=== PATIENT | female | born 1975 | race Caucasian/White ===

== ENCOUNTER 2016-06-04 10:43 | Emergency (ER) | payer MEDICAID ==
[~2016-06-04] VITALS: Ht 167.6 cm; Wt 134.7 kg
[~2016-06-04 10:43] MED LIST: BUSP10TA PO; CLIN300C93 PO; FLUO40CA9 PO; [UNRECOGNIZED DRUG - OTHER]
[2016-06-04 10:44] VITALS: BP 126/81
[2016-06-04] MEDS ORDERED: HYDROcodone/APAP 5/325 TABLET ONE (11:15)
[2016-06-04] MEDS ORDERED: ALBU8.5H3 INH (11:21)
[2016-06-04] MEDS ORDERED: HYDROcodone/APAP 5/325 TABLET PO ONE (11:30)
== END 2016-06-04 12:57 | disposition home or self-care (01) ==
LOC: ED 11:26
DX: M77.32 Calcaneal spur, left foot (principal); J45.909 Unspecified asthma, uncomplicated; M19.90 Unspecified osteoarthritis, unspecified site
CPT/HCPCS: 99284

== ENCOUNTER 2016-07-02 16:16 | Emergency (ER) | payer MEDICAID ==
[~2016-07-02] VITALS: Ht 167.6 cm; Wt 134.1 kg
[~2016-07-02 16:16] MED LIST changes: +ALBU8.5H3 INH
[2016-07-02 16:22] VITALS: BP 153/82
== END 2016-07-02 17:13 | disposition home or self-care (01) ==
LOC: ED 17:07
DX: S51.851A Open bite of right forearm, initial encounter (principal); J45.909 Unspecified asthma, uncomplicated; M19.90 Unspecified osteoarthritis, unspecified site; W50.3XXA Accidental bite by another person, initial encounter; Y93.89 Activity, other specified; Y92.89 Other specified places as the place of occurrence of the external cause; Y99.8 Other external cause status
CPT/HCPCS: 99284

== ENCOUNTER 2017-06-14 11:04 | Emergency (ER) | payer MEDICAID, OTHER ==
[~2017-06-14] VITALS: Ht 165.1 cm; Wt 126.4 kg
[~2017-06-14 11:04] MED LIST changes: -ALBU8.5H3 INH; +ALBU8.5H8 INH; +CLIN300C8 PO; -CLIN300C93 PO
[2017-06-14] MEDS ORDERED: KETOROLAC 30 MG/1 ML ONE (11:40)
[2017-06-14] MEDS ORDERED: KETOROLAC 30 MG/1 ML IM ONE (12:00)
[2017-06-14 12:22] VITALS: BP 124/87
== END 2017-06-14 12:24 | disposition home or self-care (01) ==
LOC: ED 12:09
DX: M75.91 Shoulder lesion, unspecified, right shoulder (principal); F32.9 Major depressive disorder, single episode, unspecified
CPT/HCPCS: 73030; 73080; 96372; 99284; J1885

== ENCOUNTER 2017-09-18 14:40 | Emergency (ER) | payer SELFPAY ==
[~2017-09-18] VITALS: Ht 165.1 cm; Wt 124.0 kg
[2017-09-18 15:02] VITALS: BP 146/107
== END 2017-09-18 15:47 | disposition home or self-care (01) ==
LOC: ED 15:41
DX: K08.89 Other specified disorders of teeth and supporting structures (principal)
CPT/HCPCS: 99283

== ENCOUNTER 2019-01-06 13:12 | Emergency (ER) | payer MEDICAID ==
[~2019-01-06] VITALS: Ht 165.1 cm; Wt 131.9 kg
[2019-01-06 13:30] VITALS: BP 146/86
[2019-01-06] MEDS ORDERED: NALO4SPR INH (13:45)
[2019-01-06] MEDS ORDERED: GABA300C10 PO (13:45)
[2019-01-06] MEDS ORDERED: IRON (13:45)
[2019-01-06] MEDS ORDERED: AMIT25TA PO (13:45)
[2019-01-06] MEDS ORDERED: VIT D PO (13:45)
[2019-01-06] MEDS ORDERED: OXYC-307 PO (13:45)
[2019-01-06] MEDS ORDERED: HYDR-826 PO (13:45)
[2019-01-06] MEDS ORDERED: ATOR-2 PO (13:45)
[2019-01-06] MEDS ORDERED: LORA-247 PO (13:45)
[2019-01-06] MEDS ORDERED: CYCL-259 PO (13:45)
[2019-01-06] MEDS ORDERED: DOCU100C33 PO (13:45)
[2019-01-06] MEDS ORDERED: OMEP20TA62 PO (13:45)
== END 2019-01-06 15:03 | disposition home or self-care (01) ==
LOC: ED 14:33
DX: S86.111A Strain of other muscle(s) and tendon(s) of posterior muscle group at lower leg level, right leg, initial encounter (principal); X58.XXXA Exposure to other specified factors, initial encounter; Y93.89 Activity, other specified; Y92.89 Other specified places as the place of occurrence of the external cause; Y99.8 Other external cause status
CPT/HCPCS: 99284

== ENCOUNTER 2019-10-22 15:18 | Emergency (ER) | payer MEDICAID ==
[~2019-10-22] VITALS: Ht 167.6 cm; Wt 105.0 kg
[~2019-10-22 15:18] MED LIST changes: +AMIT25TA PO; +ATOR-2 PO; +CYCL-259 PO; +DOCU100C33 PO; +GABA300C10 PO; +HYDR-826 PO; +IRON; +LORA-247 PO; +NALO4SPR INH; +OMEP20TA62 PO; +OXYC-307 PO; +VIT D PO
--- NOTE | 2019-10-22 15:36 | NUR ---
PT BIB [facility], PT WITH MULTIPLE COMPLAINTS, MAIN COMPLAINT PT WITH RED TONGUE AND SORE THROAT, PT DENIES FEVERS OR COUGH. PT ALSO STATES SHE BEGAN TAKING ABX YESTERDAY FOR SUSPICION OF HAVING UTI. SHE ALSO STATES SHE HAS HAD OVERALL "FEELING ICKY" FOR THE PAST WEEK. PT TO BP, CONT PULSE OX. AWAITING ERPROVIDER EVAL
[2019-10-22] MEDS ORDERED: DEXAMETHASONE 4 MG TABLET ONE (15:56)
[2019-10-22] MEDS ORDERED: MECLIZINE CHEWABLE 25 MG TAB ONE (15:56)
[2019-10-22] MEDS ORDERED: MECLIZINE CHEWABLE 25 MG TAB PO ONE (16:00)
[2019-10-22] MEDS ORDERED: DEXAMETHASONE 4 MG TABLET PO ONE (16:00)
--- NOTE | 2019-10-22 16:01 | NUR ---
PT MEDICATED PER MAR, VSS, NAD NOTED AT THIS TIME
[2019-10-22 16:05] LABS: BASOPHILS # (AUTO) 0.04 x10^3/uL (0-0.1); BASOPHILS % (AUTO) 1 % (0-1); EOSINOPHILS # (AUTO) 0.14 x10^3/uL (0-0.4); EOSINOPHILS % (AUTO) 2 % (1-7); LYMPHOCYTES # (AUTO) 2.22 x10^3/uL (1-3.4); LYMPHOCYTES % (AUTO) 32 % (22-44); MD NO; MEAN CORPUSCULAR HEMOGLOBIN 29.7 pg (27.0-34.8); MEAN CORPUSCULAR HGB CONC 33.9 g/dL (32.4-35.8); MEAN CORPUSCULAR VOLUME 87.5 fL (80-100); MEAN PLATELET VOLUME 8.8 fL (7.4-10.4); MONOCYTES # (AUTO) 0.51 x10^3/uL (0.2-0.8); MONOCYTES % (AUTO) 7 % (2-9); NEUTROPHILS # (AUTO) 3.97 x10^3/uL (1.8-6.8); NEUTROPHILS % (AUTO) 58 % (42-75); PLATELET COUNT 225 x10^3/uL (130-400); RED CELL DISTRIBUTION WIDTH 12.4 % (9.6-15.2)
[2019-10-22 16:13] LABS: ALBUMIN 3.6 g/dL (3.4-5.0); ANION GAP 6 mmol/L (5-15); CALCIUM 8.9 mg/dL (8.5-10.1); CHLORIDE 109 mmol/L (98-107)
[2019-10-22 16:19] LABS: CREATININE 0.98 mg/dL (0.55-1.02)
--- NOTE | 2019-10-22 16:52 | NUR ---
PT STATES SHE IS NO LONGER DIZZY, ABLE TO AMBULATE STEADILY TO BR.
[2019-10-22 17:35] LABS: MICROSCOPIC AUTO
--- NOTE | 2019-10-22 18:48 | NUR ---
Bedside report from Catalina CLIFTON, pt resting on JEOVANNY mares. JOSHUATM. pt to be DC'd, waiting for paperwork.
[2019-10-22 19:05] VITALS: BP 119/71
--- NOTE | 2019-10-22 19:06 | NUR ---
Patient/Caregiver given discharge instructions and they have confirmed that they understand the instructions. Patient ambulatory with steady gait. ALL QUESTIONS ANSWERED APPROPRIATELY, NAD, VSS, NO PT BELONGINGS LEFT IN ROOM AT PA.
== END 2019-10-22 19:09 | disposition home or self-care (01) ==
LOC: ED 16:44
DX: R55 Syncope and collapse (principal); R42 Dizziness and giddiness; J04.0 Acute laryngitis; R05 Cough; Z20.828 Contact with and (suspected) exposure to other viral communicable diseases; R07.89 Other chest pain
CPT/HCPCS: 36415; 71045; 80048; 81001; 82040; 84703; 85025; 87081; 87086; 87635; 87880; 99284